=== PATIENT | female | born 1945 | race Caucasian/White ===

== ENCOUNTER → 2019-04-08 | Outpatient (CLI) | payer MEDICARE, BC | LOC: COL.VAS 14:09 | DX: I27.20 Pulmonary hypertension, unspecified (principal) ==

== ENCOUNTER → 2019-05-23 | Outpatient (CLI) | payer MEDICARE, BC | LOC: COL.RAD 09:45 | DX: N18.3 Chronic kidney disease, stage 3 (moderate) (principal); R31.9 Hematuria, unspecified ==

== ENCOUNTER 2020-08-11 19:17 | Emergency (ER) | payer MEDICARE, BC ==
[~2020-08-11] VITALS: Ht 162.6 cm; Wt 107.7 kg
[2020-08-11] MEDS ORDERED: CENTRUM SILVER1 CTB PO (19:47)
[2020-08-11] MEDS ORDERED: EPA FISH OIL1 SGL PO (19:48)
[2020-08-11] MEDS ORDERED: ZYLOPRIM 100MG100 MG PO (19:49)
[2020-08-11] MEDS ORDERED: ELIQUIS 5MG PO (19:49)
[2020-08-11] MEDS ORDERED: ASPIRIN 81M81 MG/TA2 PO (19:50)
[2020-08-11] MEDS ORDERED: GLUCOPHAGE850 MG/TAB PO (19:51)
[2020-08-11] MEDS ORDERED: MELATONIN1 MG PO (19:51)
[2020-08-11] MEDS ORDERED: VICTOZA6 MG/ML SQ (19:52)
[2020-08-11] MEDS ORDERED: MYRBETR50MG PO (19:53)
[2020-08-11] MEDS ORDERED: VITAMIN D31000 I1 PO (19:53)
[2020-08-11] MEDS ORDERED: LANTUS SOLOS100 U/ML SQ (19:54)
[2020-08-11] MEDS ORDERED: TYLENOL 325MG325 MG PO (20:02)
[2020-08-11] MEDS ORDERED: VOLTAREN GEL 1%1 TU TP (20:02)
[2020-08-11] MEDS ORDERED: ROBAXIN 50500 MG/TAB PO (20:02)
[2020-08-11 20:20] VITALS: BP 182/73; PULSE 73; TEMP 97.8
== END 2020-08-11 20:20 | disposition home or self-care (01) ==
LOC: COL.ER 19:17
DX: M54.2 Cervicalgia (principal); Z88.8 Allergy status to other drugs, medicaments and biological substances; Z79.01 Long term (current) use of anticoagulants; Z79.82 Long term (current) use of aspirin; Z79.4 Long term (current) use of insulin

== ENCOUNTER → 2020-08-23 | Outpatient (CLI) | payer MEDICARE, BC ==
[~2020-08-23] MED LIST: ASPIRIN 81M81 MG/TA2 PO; CENTRUM SILVER1 CTB PO; ELIQUIS 5MG PO; EPA FISH OIL1 SGL PO; GLUCOPHAGE850 MG/TAB PO; LANTUS SOLOS100 U/ML SQ; MELATONIN1 MG PO; MYRBETR50MG PO; ROBAXIN 50500 MG/TAB PO; TYLENOL 325MG325 MG PO; VICTOZA6 MG/ML SQ; VITAMIN D31000 I1 PO; VOLTAREN GEL 1%1 TU TP; ZYLOPRIM 100MG100 MG PO
== END ==
LOC: COL.RAD 08:30
DX: R31.0 Gross hematuria (principal); Z90.49 Acquired absence of other specified parts of digestive tract; Z90.710 Acquired absence of both cervix and uterus

== ENCOUNTER → 2020-11-24 | Outpatient (CLI) | payer MEDICARE, BC | LOC: COL.RAD 09:20 | DX: R31.0 Gross hematuria (principal) ==

== ENCOUNTER 2020-11-28 11:12 | Emergency (ER) | payer MEDICARE, BC ==
[~2020-11-28] VITALS: Ht 165.1 cm; Wt 106.4 kg
[2020-11-28 13:01] VITALS: BP 176/64; PULSE 69; TEMP 97.3
== END 2020-11-28 13:04 | disposition home or self-care (01) ==
LOC: COL.ER 11:12
DX: S50.12XA Contusion of left forearm, initial encounter (principal); I80.8 Phlebitis and thrombophlebitis of other sites; E11.9 Type 2 diabetes mellitus without complications; I48.91 Unspecified atrial fibrillation; Z79.01 Long term (current) use of anticoagulants; Z79.4 Long term (current) use of insulin; X58.XXXA Exposure to other specified factors, initial encounter

== ENCOUNTER → 2021-02-01 | Outpatient (CLI) | payer MEDICARE, BC | LOC: COL.VAS 13:14 | DX: I27.20 Pulmonary hypertension, unspecified (principal); I35.1 Nonrheumatic aortic (valve) insufficiency ==

== ENCOUNTER 2021-04-21 15:45 | Outpatient (RCR) | payer MEDICARE, BC | END 2021-04-22 | disposition home or self-care (01) | LOC: MKS.ESL.PT | DX: M25.561 Pain in right knee (principal) ==

== ENCOUNTER 2021-06-10 14:30 | Outpatient (RCR) | payer MEDICARE, BC ==
[2021-06-29] MEDS ORDERED: DOXYCYCLINE 10100 MG PO (16:40)
[2021-06-29] MEDS ORDERED: AMOXICILLIN875 MG PO (16:41)
== END 2021-06-20 | disposition home or self-care (01) ==
LOC: MKS.ESL.PT
DX: M25.561 Pain in right knee (principal); R53.1 Weakness

== ENCOUNTER → 2021-06-29 | Emergency (ER) | payer MEDICARE, BC ==
[~2021-06-29] VITALS: Ht 162.6 cm; Wt 145.5 kg
[~2021-06-29] MED LIST changes: +AMOXICILLIN875 MG PO; +DOXYCYCLINE 10100 MG PO
[2021-06-29 14:22] VITALS: PULSE 79; TEMP 97.6
[2021-06-29 14:38] VITALS: BP 195/69
[2021-06-29 15:28] LABS: BASO # 0.1 K/mm3 (0.0-0.2); BASO % 0.6 % (0.0-2.0); EOS # 0.2 K/mm3 (0.0-0.7); EOS % 2.6 % (0.0-4.0); GRAN # 5.8 K/mm3 (1.4-6.5); GRAN % 72.6 % (42.2-75.2); LYMPH # 1.3 K/mm3 (1.2-3.4); LYMPH % 16.5 % (20.0-51.0); MEAN CELL VOLUME 90 fl (80.0-100.0); MEAN CORPUSCULAR HGB CONC 31 g/dl (33.0-37.0); MEAN PLATELET VOLUME 11.2 fl (7.4-10.4); MONO # 0.6 K/mm3 (0.1-0.6); MONO % 7.5 % (1.7-9.3); PLATELET COUNT 173 K/mm3 (130-400); RED BLOOD COUNT 2.98 M/mm3 (4.10-5.30); REDCELL DISTRIBUTION WIDTH-CV 15.5 % (11.5-14.5)
[2021-06-29 15:33] LABS: HEMATOCRIT 26.7 % (37.0-47.0); HEMOGLOBIN 8.2 g/dl (12.5-16.0); MEAN CORPUSCULAR HEMOGLOBIN 28 pg (27-31)
[2021-06-29 15:40] LABS: C-REACTIVE PROTEIN 1.34 mg/dL (0.00-0.50); CREATININE, serum 1.1 mg/dL (0.57-1.11); POTASSIUM 4.9 mmol/L (3.5-4.5)
== END ==
LOC: COL.ER 13:43
PROVIDERS: Physician Assistant
DX: L03.116 Cellulitis of left lower limb (principal); L03.115 Cellulitis of right lower limb; E87.5 Hyperkalemia; I48.0 Paroxysmal atrial fibrillation; Z86.73 Personal history of transient ischemic attack (TIA), and cerebral infarction without residual deficits; Z88.1 Allergy status to other antibiotic agents; Z79.01 Long term (current) use of anticoagulants

== ENCOUNTER 2021-07-19 15:00 | Outpatient (RCR) | payer MEDICARE, BC | END 2021-07-21 | disposition home or self-care (01) | LOC: MKS.ESL.PT | DX: M25.561 Pain in right knee (principal); R53.1 Weakness ==

== ENCOUNTER → 2021-09-07 14:03 | Outpatient (RCR) | payer MEDICARE, BC ==
[~2021-09-07 14:03] MED LIST changes: +*Hypoglycemia Clinic MC; +CLEOCIN HC150 MG/CAP PO; +COLACE 100100 MG/CAP PO; +COZAAR100 MG PO; +Cordarone PO; +GEMTESA75 MG PO; +HCTZ 25MG TAB25 MG PO; +LASIX 20MG TABL20 MG PO; +MOTRIN 200200 MG/TAB PO; +NEURONTIN100 MG/CAP PO; +NORVASC 10MG10 MG PO; +NORVASC 5MG5 MG/TAB PO; +PROTONIX 40MG T40 MG PO; +PROZAC 10MG10 MG PO; +PROZAC 20MG20 MG PO; +Remove Patch TD
== END | disposition home or self-care (01) ==
LOC: MKS.ESL.PT 07-22 13:00
DX: M25.561 Pain in right knee (principal); G89.29 Other chronic pain

== ENCOUNTER 2021-10-21 14:07 | Emergency (ER) | payer MEDICARE, BC ==
[~2021-10-21] VITALS: Ht 165.1 cm; Wt 108.2 kg
[~2021-10-21 14:07] MED LIST changes: -*Hypoglycemia Clinic MC; -CLEOCIN HC150 MG/CAP PO; -COLACE 100100 MG/CAP PO; -COZAAR100 MG PO; -Cordarone PO; -GEMTESA75 MG PO; -HCTZ 25MG TAB25 MG PO; -LASIX 20MG TABL20 MG PO; -MOTRIN 200200 MG/TAB PO; -NEURONTIN100 MG/CAP PO; -NORVASC 10MG10 MG PO; -NORVASC 5MG5 MG/TAB PO; -PROTONIX 40MG T40 MG PO; -PROZAC 10MG10 MG PO; -PROZAC 20MG20 MG PO; -Remove Patch TD
[2021-10-21 14:40] VITALS: BP 153/70; TEMP 97.8
[2021-10-21 16:45] VITALS: PULSE 68
== END 2021-10-21 16:45 | disposition home or self-care (01) ==
LOC: COL.ER 14:07
DX: S83.92XA Sprain of unspecified site of left knee, initial encounter (principal); S70.01XA Contusion of right hip, initial encounter; W18.2XXA Fall in (into) shower or empty bathtub, initial encounter; Y93.E1 Activity, personal bathing and showering; Y92.002 Bathroom of unspecified non-institutional (private) residence as the place of occurrence of the external cause

== ENCOUNTER 2021-11-01 17:22 | Inpatient (IN) | payer MEDICARE, BC ==
[~2021-11-01] VITALS: Ht 165.1 cm; Wt 109.8 kg
[2021-11-01] VITALS (8 sets, daily range): BP systolic 145–171; BP diastolic 41–70; PULSE 65–71; TEMP 97.7–98
[2021-11-01 18:08] LABS: BASO # 0.1 K/mm3 (0.0-0.2); BASO % 0.8 % (0.0-2.0); EOS # 0.2 K/mm3 (0.0-0.7); EOS % 3.2 % (0.0-4.0); GRAN # 5.1 K/mm3 (1.4-6.5); GRAN % 67.6 % (42.2-75.2); LYMPH # 1.5 K/mm3 (1.2-3.4); LYMPH % 20.3 % (20.0-51.0); MEAN CELL VOLUME 92 fl (80.0-100.0); MEAN CORPUSCULAR HGB CONC 31 g/dl (33.0-37.0); MEAN PLATELET VOLUME 11.1 fl (7.4-10.4); MONO # 0.6 K/mm3 (0.1-0.6); MONO % 7.8 % (1.7-9.3); PLATELET COUNT 186 K/mm3 (130-400); RED BLOOD COUNT 2.39 M/mm3 (4.10-5.30); REDCELL DISTRIBUTION WIDTH-CV 16.2 % (11.5-14.5)
[2021-11-01 18:14] LABS: HEMOGLOBIN 6.7 g/dl (12.5-16.0); MEAN CORPUSCULAR HEMOGLOBIN 28 pg (27-31)
[2021-11-01 18:19] LABS: ALBUMIN 3.2 gm/dL (3.4-4.8); BILIRUBIN,TOTAL 0.3 mg/dL (0.2-1.2); C-REACTIVE PROTEIN 1.27 mg/dL (0.00-0.50); CALCIUM 9.1 mg/dL (8.4-10.2); CREATININE, serum 1.88 mg/dL (0.57-1.11); POTASSIUM 4.9 mmol/L (3.5-4.5); TOTAL PROTEIN 6.6 gm/dL (6.2-8.1)
[2021-11-01 18:31] LABS: INR 1.9 (0.8-3.0); PROTHROMBIN TIME 21.5 SECONDS (9.7-12.8)
--- NOTE | 2021-11-01 20:55 | NUR ---
PT IN THE ROOM AT THIS TIME. BLOOD TRANSFUSION IN PROCESS, RUNNING AT 150ML/HR INTO THE RIGHT ANTECUBITAL. THE PATIENT NEEDS TO URINATE, SO UTILIZED BEDSIDE COMMODE. PT IS A MAX 2 ASSIST. PT STATES SHE DOES NOT KNOW ALL OF HER MEDICATIONS, HOWEVER, SHE HAS NOT TAKEN ANY SINCE LAST NIGHT. THE PATIENT DID HAVE SOME STRESS INCONTINENCE FROM STANDING UP AT BEDSIDE TO THE BEDSIDE COMMODE. WILL CONTINUE TO ASSESS. VSS AT THIS TIME. NO FURTHER CONCERNS.
[2021-11-01 21:22] LABS: COLLECTION METHOD CLEAN CATCH
[2021-11-01] MEDS ORDERED: LASIX 20MG TABL20 MG PO (21:28)
[2021-11-01] MEDS ORDERED: NORVASC 10MG10 MG PO (21:28)
[2021-11-01 21:34] LABS: MUCOUS Present (NOT PRESENT); PH 5 (5-8); SQUAMOUS EPITHELIAL 0-2 /hpf (0-10); URINE APPEARANCE Clear (CLEAR/HAZY); URINE BACTERIA Rare /hpf (NONE SEEN); URINE BLOOD 3+ (NEGATIVE); URINE COLOR Yellow (YELLOW); URINE GLUCOSE Negative (NEGATIVE); URINE KETONE Negative (NEGATIVE); URINE NITRATE Negative (NEGATIVE); URINE PROTEIN(semi-quant) Negative (NEGATIVE); URINE RBC >50 /hpf (0-2); URINE UROBILINOGEN Negative (NEGATIVE)
[2021-11-01] MEDS ORDERED: COZAAR100 MG PO (21:35)
[2021-11-01] MEDS ORDERED: NEURONTIN100 MG/CAP PO (21:37)
[2021-11-01] MEDS ORDERED: PROZAC 20MG20 MG PO (21:38)
[2021-11-01] MEDS ORDERED: MOTRIN 200200 MG/TAB PO (21:45)
[2021-11-01] MEDS ORDERED: HCTZ 25MG TAB25 MG PO (21:51)
[2021-11-01] MEDS ORDERED: GEMTESA75 MG PO (22:00)
[2021-11-01 22:37] LABS: HEMATOCRIT 24.6 % (37.0-47.0); HEMOGLOBIN 7.9 g/dl (12.5-16.0)
[2021-11-02 07:30] VITALS: BP 146/45; PULSE 64; TEMP 98.2
[2021-11-02 11:11] LABS: CALCIUM 9.1 mg/dL (8.4-10.2); CREATININE, serum 1.46 mg/dL (0.57-1.11); MAGNESIUM 1.4 mg/dL (1.6-2.6); POTASSIUM 4.5 mmol/L (3.5-4.5)
[2021-11-02 11:25] LABS: BASO % 0.4 % (0.0-2.0); EOS # 0.3 K/mm3 (0.0-0.7); EOS % 3.5 % (0.0-4.0); GRAN # 4.4 K/mm3 (1.4-6.5); GRAN % 61.9 % (42.2-75.2); HEMATOCRIT 23.7 % (37.0-47.0); HEMOGLOBIN 7.6 g/dl (12.5-16.0); LYMPH # 1.8 K/mm3 (1.2-3.4); LYMPH % 25.6 % (20.0-51.0); MEAN CELL VOLUME 91 fl (80.0-100.0); MEAN CORPUSCULAR HEMOGLOBIN 29 pg (27-31); MEAN CORPUSCULAR HGB CONC 32 g/dl (33.0-37.0); MEAN PLATELET VOLUME 11.8 fl (7.4-10.4); MONO # 0.6 K/mm3 (0.1-0.6); MONO % 8.2 % (1.7-9.3); PLATELET COUNT 171 K/mm3 (130-400); RED BLOOD COUNT 2.62 M/mm3 (4.10-5.30); REDCELL DISTRIBUTION WIDTH-CV 16.1 % (11.5-14.5)
[2021-11-02 11:30] VITALS: BP 142/34; PULSE 71
[2021-11-02 12:00] VITALS: BP 142/34; PULSE 71
[2021-11-02 12:45] LABS: THYROID STIMULATING HORMONE 3.7 uIU/mL (0.350-4.940)
--- NOTE | 2021-11-02 13:04 | NUR ---
PATIENT UP IN CHAIR. PT ASSIST TO CHAIR WITH WALKER, MAX 2 ASSIST. PATIENT STRUGGLED AFTERWARDS FOR [id number] AND BACK TO BED FOR TRANSPORT TO MRI. PATIENT LLE NOT SUPPORTING WEIGHT COMPLETELY. PATIENT UNABLE TO CONTROL BLADDER. PATIENT HAS CONSISTENT HEMATURIA. ENDO PLANNED TODAY FOR EVAL. NO BOWEL MOVEMENT THIS MORNING. PATIENT NPO FOR PROCEDURE. C/O OF PAIN IN SPINE AND HIPS. MRI TAKEN THIS MORNING. WILL CONTINUE TO MONITOR.
[2021-11-02] MEDS ORDERED: NORVASC 5MG5 MG/TAB PO (15:45)
[2021-11-02] MEDS ORDERED: PROZAC 10MG10 MG PO (15:48)
[2021-11-02] MEDS ORDERED: GLUCOPHAGE850 MG/TAB PO (15:54)
[2021-11-02 16:00] VITALS: BP 148/52; PULSE 64
--- NOTE | 2021-11-02 18:09 | NUR ---
PATIENTS HEMATURIA HAS REDUCED OVER THE COURSE OF THE DAY. URINE IS STILL DARK YELLOW AND HAZY. PURWICK IN PLACE. PATIENT PER PT IS A 2MAX ASSIST. THIS NURSE RECOMMENDS A [id number] DEVICE FOR MOVING TO RECLINER AND WHEELCHAIRS, TOLIETS. PATIENT HAS HAD MRI TODAY AND UPPER SCOPE. NO PLAN FOR COLONOSCOPY, PER. DR. TO. FREQ COMPLAINTS OF BACK PAIN, DULL ACHE ALONG HER SPINE. NORCO ORDERED, HOWEVER WHEN THIS NURSE HAS GONE TO REASSESS PATIENT FOR NEED, PATIENT HAS BEEN SLEEPING SOUNDLY, THERFORE NO MEDS GIVEN. PATIENT IS TOLERATING PO DIET. ACCU CHECKS CHANGED TO ACHS, WITH DIET ORDERED. NO SIGNIFICANT EVENTS. NO OTHER CONCERNS.
[2021-11-02 20:13] VITALS: BP 152/44; PULSE 74; TEMP 99.2
[2021-11-03 00:35] VITALS: BP 151/43; PULSE 70; TEMP 97.9
[2021-11-03 04:45] VITALS: BP 146/47; PULSE 58; TEMP 97.9
[2021-11-03 07:07] VITALS: BP 140/56; PULSE 57; TEMP 97.7
--- NOTE | 2021-11-03 10:39 | NUR ---
SARAN met with the patient to discuss discharge plan. The patient lives in [place] with her son, Estrada (ph#[phone]). She reports independence with ADLs and has a cane, walker, and wheelchair. She states that she primarily uses the walker. The patient's PCP is Dr. Sandra Chen and she receives her medications from [facility]. The patient does not have a DPOA-HC and she was not interested in completing one at this time. The patient states that she is and that she has two children: Estrada and Vincent Davis. Vincent lives in [place]. PT/OT have worked with the patient and they are recommending post-acute rehab. The patient was also having multiple falls before being admitted. SARAN discussed post-acute rehab. The patient is interested in rehab and states that she does not want to go to a facility or swingbed in [place]. She would prefer a SNF in [place]. She is open to SARAN to sending referrals to SNFs in [place], but then stated she is unsure if she wants to pursue with SNF or not yet. SARAN attempted to contact the patient's son, Estrada, to update on the above. SARAN left him a voicemail. SARAN contacted and faxed a referral to [facility], [facility], and [facility]. Awaiting screens. *Discharge plan: SNF. Referrals out*
[2021-11-03 11:53] VITALS: BP 156/47; PULSE 65; TEMP 98
[2021-11-03 13:14] LABS: LYME DISEASE ANTIBODIES Negative (Negative)
[2021-11-03 14:01] LABS: CALCIUM 9.5 mg/dL (8.4-10.2); CREATININE, serum 1.45 mg/dL (0.57-1.11); POTASSIUM 4.6 mmol/L (3.5-4.5)
--- NOTE | 2021-11-03 14:46 | NUR ---
Fred, at [facility], reports that they are able to accept the patient. [facility] reports that they are able to accept the patient.
[2021-11-03 15:46] VITALS: BP 148/41; PULSE 62; TEMP 97.8
--- NOTE | 2021-11-03 16:21 | NUR ---
Kierra, at [facility], confirms they would need a copy of the patient's COVID vaccine card and if the patient is unable to complete admission paperwork on her own, they would require the patient's son to be present and DPOA-HC paperwork done. SW met with the patient to update and follow up on preference for facility. The patient states that she would like to try [facility]. She states that her COVID vaccine card is at home and that her and her son can do the paperwork together. SARAN informed her that [facility] would require a DPOA-HC to be completed and asked if she would like to complete a DPOA-HC today. The patient asked what if she does not go to [facility]. SARAN informed her that we could look at her going to [facility] then. The patient states that she needs to talk to her son first. SARAN attempted to contact the patient's son again. SARAN left him a voicemail.
[2021-11-03 19:40] VITALS: BP 146/43; PULSE 65; TEMP 98.3
[2021-11-04 00:51] VITALS: BP 150/58; PULSE 55; TEMP 97.9
[2021-11-04 04:22] VITALS: BP 143/55; PULSE 58; TEMP 98
[2021-11-04 06:57] LABS: BASO # 0.1 K/mm3 (0.0-0.2); BASO % 0.7 % (0.0-2.0); EOS # 0.2 K/mm3 (0.0-0.7); EOS % 2.9 % (0.0-4.0); GRAN # 5.6 K/mm3 (1.4-6.5); GRAN % 67.6 % (42.2-75.2); LYMPH # 1.6 K/mm3 (1.2-3.4); LYMPH % 19.8 % (20.0-51.0); MEAN CELL VOLUME 91 fl (80.0-100.0); MEAN CORPUSCULAR HGB CONC 31 g/dl (33.0-37.0); MONO # 0.7 K/mm3 (0.1-0.6); MONO % 8.6 % (1.7-9.3); PLATELET COUNT 191 K/mm3 (130-400); RED BLOOD COUNT 2.71 M/mm3 (4.10-5.30); REDCELL DISTRIBUTION WIDTH-CV 15.8 % (11.5-14.5)
--- NOTE | 2021-11-04 07:00 | NUR ---
The patient had an uneventful evening. IV in the left hand infiltrated. Started new IV in the left forearm. Pt denies any severe pain, chronic back pain gave tylenol for and has not needed anything else this night. Report was given to ROXANNA Freitas.
[2021-11-04 07:05] LABS: HEMATOCRIT 24.6 % (37.0-47.0); HEMOGLOBIN 7.7 g/dl (12.5-16.0); MEAN CORPUSCULAR HEMOGLOBIN 28 pg (27-31)
[2021-11-04 07:12] LABS: ALBUMIN 3.2 gm/dL (3.4-4.8); CALCIUM 9.4 mg/dL (8.4-10.2); CREATININE, serum 1.54 mg/dL (0.57-1.11); MAGNESIUM 1.3 mg/dL (1.6-2.6); PHOSPHOROUS 3.7 mg/dL (2.3-4.7); POTASSIUM 4.5 mmol/L (3.5-4.5)
[2021-11-04 08:07] VITALS: BP 124/77; BP 139/50; PULSE 62; PULSE 79; TEMP 98
--- NOTE | 2021-11-04 09:03 | NUR ---
Ximena, at [facility], contacted this SW and reports that they had the patient on for services.
--- NOTE | 2021-11-04 10:02 | NUR ---
Spoke with Dr Min and Dr Hopper and cisternogram will be done outpatient.
--- NOTE | 2021-11-04 10:13 | NUR ---
Kierra with [facility] arrives to unit stating that she is able to bring the patient over today if she is ready. SW collaborated with hospitalist who states that since cardiology is going to be starting her on a new medication she will be here through the weekend. Kierra updated that a possible dc for Sunday.
--- NOTE | 2021-11-04 10:39 | NUR ---
Dr Perez notified of need for PICC line. States okay to place in dominant arm.
[2021-11-04 12:11] VITALS: BP 150/47; PULSE 67; TEMP 98.1
[2021-11-04 15:46] VITALS: BP 139/42; PULSE 72; TEMP 98.2
--- NOTE | 2021-11-04 16:26 | NUR ---
George from [facility] called stating that they have also accepted this patient.
--- NOTE | 2021-11-04 18:18 | NUR ---
Patient had an uneventful day. Amio infusing @0.5mg/hr to right upper arm PICC without difficulty. Loop recorder was placed this afternoon. Denied pain/nausea/shortness of breath. Denies current needs. Call light in reach. Will monitor.
[2021-11-04 19:09] LABS: CADMIUM BLOOD <0.2 ng/mL (<5.0); LEAD,SERUM** <1.0 mcg/dL (<5.0); MERCURY,SERUM <1 ng/mL (<10)
[2021-11-04 19:38] VITALS: BP 152/53; PULSE 77; TEMP 97.6
[2021-11-05 00:22] VITALS: BP 159/45; PULSE 69; TEMP 98.3
[2021-11-05 05:06] VITALS: BP 144/42; PULSE 63; TEMP 97.8
[2021-11-05 07:29] LABS: BASO % 0.3 % (0.0-2.0); EOS # 0.2 K/mm3 (0.0-0.7); EOS % 3.6 % (0.0-4.0); GRAN # 4.5 K/mm3 (1.4-6.5); GRAN % 66.7 % (42.2-75.2); LYMPH # 1.4 K/mm3 (1.2-3.4); LYMPH % 20.7 % (20.0-51.0); MEAN CELL VOLUME 92 fl (80.0-100.0); MEAN CORPUSCULAR HGB CONC 30 g/dl (33.0-37.0); MEAN PLATELET VOLUME 10.9 fl (7.4-10.4); MONO # 0.6 K/mm3 (0.1-0.6); MONO % 8.4 % (1.7-9.3); PLATELET COUNT 175 K/mm3 (130-400); RED BLOOD COUNT 2.59 M/mm3 (4.10-5.30); REDCELL DISTRIBUTION WIDTH-CV 15.6 % (11.5-14.5)
[2021-11-05 07:35] LABS: HEMATOCRIT 23.7 % (37.0-47.0); HEMOGLOBIN 7.2 g/dl (12.5-16.0); MEAN CORPUSCULAR HEMOGLOBIN 28 pg (27-31)
[2021-11-05 07:51] LABS: ALBUMIN 2.9 gm/dL (3.4-4.8); CALCIUM 8.9 mg/dL (8.4-10.2); CREATININE, serum 1.35 mg/dL (0.57-1.11); MAGNESIUM 1.5 mg/dL (1.6-2.6); PHOSPHOROUS 3.7 mg/dL (2.3-4.7); POTASSIUM 4.5 mmol/L (3.5-4.5)
[2021-11-05 08:00] VITALS: BP 151/50; PULSE 58; TEMP 98.1
[2021-11-05 12:00] VITALS: BP 148/41; PULSE 58
--- NOTE | 2021-11-05 12:51 | NUR ---
PATIENT UP IN RECLYNER DURING ASSESSMENT. AMIO GTT BEING DISCONTINUED. ORAL DOSE ADMINISTURED. PATIENT INCONTINENT OF URINE. C/O LACK OF BOWEL MOVEMENT SINCE ADMIT. PATIENT REQUEST LIDOCAINE PATCH TO BE PLACED WHEN PUT BACK TO BED. LEFT FOOT WITH +2 PITTING EDEMA. PATIENT STATES THAT HIS HER BASELINE.
[2021-11-05 16:00] VITALS: BP 134/42; PULSE 62
--- NOTE | 2021-11-05 19:37 | NUR ---
PATIENT SAT IN RECLYNER FOR ENTIRITY OF SHIFT. NO COMPLAINTS OF PAIN, OTHER THAN IN BACK. REFUSED LIDOCAINE PATCH UNTIL SHE WENT BACK TO BED. AMIO GTT STOPPED AT 1230PM. BRIDGED TO PO AT 1130AM. NO SIGNIFCANT EVENTS TODAY. PATIENT STARTED ON BOWEL REGIMINE SHE HAS NOT HAD A RECORDED BOWEL MOVEMENT SINCE ADMISSION. BOWELS ACTIVE AND AUDIBLE. HGB AT 7.2 TODAY, WILL CONTINUE TO MONITOR. NO OTHER CONCERNS AT THIS TIME. NO SIGNIFICANT EVENTS TODAY.
[2021-11-05 21:06] VITALS: BP 149/53; PULSE 71; TEMP 98.4
[2021-11-06] VITALS (13 sets, daily range): BP systolic 113–169; BP diastolic 40–65; PULSE 55–74; TEMP 97.4–98.2
[2021-11-06 06:06] LABS: BASO % 0.4 % (0.0-2.0); EOS # 0.3 K/mm3 (0.0-0.7); EOS % 3.3 % (0.0-4.0); GRAN # 5.3 K/mm3 (1.4-6.5); LYMPH # 1.6 K/mm3 (1.2-3.4); LYMPH % 20.6 % (20.0-51.0); MEAN CELL VOLUME 92 fl (80.0-100.0); MEAN CORPUSCULAR HGB CONC 31 g/dl (33.0-37.0); MEAN PLATELET VOLUME 10.9 fl (7.4-10.4); MONO # 0.7 K/mm3 (0.1-0.6); MONO % 8.4 % (1.7-9.3); PLATELET COUNT 170 K/mm3 (130-400); RED BLOOD COUNT 2.41 M/mm3 (4.10-5.30); REDCELL DISTRIBUTION WIDTH-CV 15.4 % (11.5-14.5)
[2021-11-06 06:23] LABS: HEMATOCRIT 22.1 % (37.0-47.0); HEMOGLOBIN 6.8 g/dl (12.5-16.0); MEAN CORPUSCULAR HEMOGLOBIN 28 pg (27-31)
[2021-11-06 06:26] LABS: ALBUMIN 2.8 gm/dL (3.4-4.8); CALCIUM 8.7 mg/dL (8.4-10.2); CREATININE, serum 1.72 mg/dL (0.57-1.11); MAGNESIUM 1.4 mg/dL (1.6-2.6); PHOSPHOROUS 3.6 mg/dL (2.3-4.7); POTASSIUM 4.7 mmol/L (3.5-4.5)
--- NOTE | 2021-11-06 12:04 | NUR ---
PATIENT VERY TIRED TODAY. WILL BE REPLACING 1 UNIT OF PRBC. NO COMPLAINTS OF PAIN, PATIENT STATES ONCE OUT OF BED, NO REAL PAIN ISSUES. REQUESTS LIDOCAINE PATCH TO BE ADMINISTERED WHEN SHE GOES BACK TO BED, HOWEVER PATIENT STAYS IN CHAIR MAJORITY OF THE DAY, MAY RESCHEDULE MED FOR END OF DAY.
--- NOTE | 2021-11-06 19:28 | NUR ---
PATIENT TOLERATED BLOOD ADMINISTRATION WELL TODAY. NO COMPLAINTS OF PAIN ONCE IN CHAIR TODAY. BOWEL PREP STARTED AT 1700 THIS EVENING. NO OTHER CONCERNS AT THIS TIME.
[2021-11-07] VITALS (7 sets, daily range): BP systolic 132–174; BP diastolic 43–57; PULSE 59–79; TEMP 96.8–98.8
--- NOTE | 2021-11-07 06:00 | NUR ---
ASSESSMENT COMPLETE FOR ARC CUTTER. PT COMPLETE SHE BOWEL PREP. HOWEVER, PT VOMITED UP ABOUT 350ML OF IT AND PT'S HAD NO BM OF THIS MORNING. DR. TO CALLED AND INFORMED, ABOUT TWO HOURS AFTER PT FINISHED HER BOWEL PREP, THAT SHE HAD NO BOWEL MOVEMENT. DR. CORREIA SAID SHE WOULD LET DR. AVALOS (I BELIEVE THAT WAS THE NAME GIVEN) THIS MORNING. CALL LIGHT WITHIN REACH.
[2021-11-07 07:35] LABS: BASO % 0.5 % (0.0-2.0); EOS # 0.2 K/mm3 (0.0-0.7); EOS % 2.9 % (0.0-4.0); GRAN # 5.7 K/mm3 (1.4-6.5); GRAN % 71.8 % (42.2-75.2); LYMPH # 1.3 K/mm3 (1.2-3.4); MEAN CELL VOLUME 88 fl (80.0-100.0); MEAN CORPUSCULAR HGB CONC 33 g/dl (33.0-37.0); MEAN PLATELET VOLUME 10.9 fl (7.4-10.4); MONO # 0.6 K/mm3 (0.1-0.6); MONO % 7.5 % (1.7-9.3); PLATELET COUNT 182 K/mm3 (130-400)
[2021-11-07 07:38] LABS: HEMATOCRIT 25.6 % (37.0-47.0); HEMOGLOBIN 8.4 g/dl (12.5-16.0); MEAN CORPUSCULAR HEMOGLOBIN 29 pg (27-31)
[2021-11-07 07:51] LABS: CALCIUM 8.9 mg/dL (8.4-10.2); CREATININE, serum 1.47 mg/dL (0.57-1.11); MAGNESIUM 2.2 mg/dL (1.6-2.6); PHOSPHOROUS 3.6 mg/dL (2.3-4.7); POTASSIUM 4.4 mmol/L (3.5-4.5)
[2021-11-07 11:05] LABS: A/G RATIO (PEP) 0.96 (()); BETA GLOBULINS (PEP) 0.9 g/dL (0.7-1.2)
--- NOTE | 2021-11-07 12:22 | NUR ---
PT RESTING IN BED. MORNING MEDICATIONS GIVEN. SHIFT ASSESSMENT COMPLETED. PT STILL HAS NOT HAD BOWEL MOVEMENT AFTER COMPLETING PREP OVERNIGHT. CURRENTLY GETTING ANOTHER PREP AND SUPPOSITORY AT THIS TIME. PT DENIES ANY NEEDS AT THIS TIME. WILL CONTINUE TO MONITOR.
--- NOTE | 2021-11-07 16:01 | NUR ---
Beading Sawyer met with patient and confirmed patient's first preference is [facility]. Patient is having scope tomorrow so will not discharge today. SARAN updated Kierra at [facility].
[2021-11-08 03:25] VITALS: BP 152/48; PULSE 60; TEMP 97.3
--- NOTE | 2021-11-08 05:00 | NUR ---
ASSESSMENT COMPLETE FOR GAUGE OPERATOR. PT HAD SEVERAL BOWEL MOVEMENT BLOWOUTS AND COMPLETE BED CHANGES. RECTAL CATHETER PLACED. PT NPO AT MIDNIGHT. CALL LIGHT EFE BRAR.
[2021-11-08 06:52] LABS: BASO % 0.6 % (0.0-2.0); EOS # 0.3 K/mm3 (0.0-0.7); EOS % 3.6 % (0.0-4.0); GRAN # 4.3 K/mm3 (1.4-6.5); GRAN % 62.6 % (42.2-75.2); LYMPH # 1.6 K/mm3 (1.2-3.4); LYMPH % 23.8 % (20.0-51.0); MEAN CELL VOLUME 91 fl (80.0-100.0); MEAN CORPUSCULAR HGB CONC 31 g/dl (33.0-37.0); MEAN PLATELET VOLUME 10.9 fl (7.4-10.4); MONO # 0.6 K/mm3 (0.1-0.6); MONO % 9.3 % (1.7-9.3); PLATELET COUNT 196 K/mm3 (130-400); REDCELL DISTRIBUTION WIDTH-CV 15.1 % (11.5-14.5)
[2021-11-08 06:55] LABS: HEMATOCRIT 26.5 % (37.0-47.0); HEMOGLOBIN 8.2 g/dl (12.5-16.0); MEAN CORPUSCULAR HEMOGLOBIN 28 pg (27-31)
[2021-11-08 07:08] LABS: CALCIUM 9.1 mg/dL (8.4-10.2); CREATININE, serum 1.4 mg/dL (0.57-1.11); MAGNESIUM 1.9 mg/dL (1.6-2.6); PHOSPHOROUS 3.5 mg/dL (2.3-4.7); POTASSIUM 4.2 mmol/L (3.5-4.5)
[2021-11-08 07:42] VITALS: BP 159/52; PULSE 57; TEMP 98.1
--- NOTE | 2021-11-08 11:27 | NUR ---
PT SITTING UP IN RECLINER. MORNING MEDICATIONS HELD FOR PROCEDURE. SHIFT ASSESSMENT COMPLETED. RECTAL TUBE IN PLACE, WILL REMOVE BEFORE PROCEDURE. PT DENIES ANY NEEDS AT THIS TIME. WILL CONTINUE TO MONITOR.
[2021-11-08 11:30] VITALS: BP 170/55; PULSE 58
--- NOTE | 2021-11-08 12:40 | NUR ---
THIS RN REMOVED RECTAL TUBE FOR COLONOSCOPY PROCEDURE AT THIS TIME.
--- NOTE | 2021-11-08 15:26 | NUR ---
Hydroelectric Powerplant Supervisor faxed clinical updates to [facility] and will have colonoscopy this afternoon. Kierra at [facility] advised they can admit patient tomorrow. SW updated patient's son who is in agreement with plan.
[2021-11-08 15:38] VITALS: BP 169/48; PULSE 58
[2021-11-08 20:04] VITALS: BP 164/56; PULSE 62; TEMP 98.9
--- NOTE | 2021-11-08 21:37 | NUR ---
ALERT AND OX3. WANTED TO GO TO CHAIR TO SET UP. VERY DIFFICULT TRANSFER. DOES NOT BEAR ANY OWN WT AND CAN HARDLY MOVE LEGS. CHAIR ALARM ON. PM MEDS GIVEN. BS TX PER ORDER. MONITORING. SHOULD DC TO [facility] IN AM. CALL LIGHT WI REACH. PT USING PURE WICK BUT DOES NOT CALL IF WET. BED WAS WET UPON TRANSFER. FULL LINEN CHANGED.
[2021-11-08 23:53] VITALS: BP 174/48; PULSE 61; TEMP 98.1
[2021-11-09 03:24] VITALS: BP 154/48; PULSE 76; TEMP 97.8
--- NOTE | 2021-11-09 04:40 | NUR ---
RESTED THROUGH THE NIGHT WITHOUT INCIDENT. CALL LIGHT WITH IN REACH. NEEDS AREA MET.
[2021-11-09 07:20] LABS: BASO % 0.6 % (0.0-2.0); EOS # 0.2 K/mm3 (0.0-0.7); EOS % 3.4 % (0.0-4.0); GRAN # 4.7 K/mm3 (1.4-6.5); GRAN % 66.4 % (42.2-75.2); LYMPH # 1.5 K/mm3 (1.2-3.4); LYMPH % 20.6 % (20.0-51.0); MEAN CELL VOLUME 91 fl (80.0-100.0); MEAN CORPUSCULAR HGB CONC 31 g/dl (33.0-37.0); MEAN PLATELET VOLUME 11.1 fl (7.4-10.4); MONO # 0.6 K/mm3 (0.1-0.6); MONO % 8.7 % (1.7-9.3); PLATELET COUNT 194 K/mm3 (130-400); RED BLOOD COUNT 2.83 M/mm3 (4.10-5.30); REDCELL DISTRIBUTION WIDTH-CV 14.8 % (11.5-14.5)
[2021-11-09 07:24] LABS: HEMATOCRIT 25.6 % (37.0-47.0); MEAN CORPUSCULAR HEMOGLOBIN 28 pg (27-31)
[2021-11-09 07:36] LABS: CALCIUM 8.8 mg/dL (8.4-10.2); CREATININE, serum 1.38 mg/dL (0.57-1.11); POTASSIUM 4.3 mmol/L (3.5-4.5)
[2021-11-09 08:00] VITALS: BP 163/51; PULSE 56; TEMP 98
[2021-11-09] MEDS ORDERED: CLEOCIN HC150 MG/CAP PO (10:43)
[2021-11-09] MEDS ORDERED: NORVASC 10MG10 MG PO (10:45)
[2021-11-09] MEDS ORDERED: ASPIRIN 81M81 MG/TA2 PO (10:46)
[2021-11-09] MEDS ORDERED: PROTONIX 40MG T40 MG PO (10:48)
[2021-11-09] MEDS ORDERED: COLACE 100100 MG/CAP PO (10:48)
[2021-11-09] MEDS ORDERED: Cordarone PO (10:57)
[2021-11-09] MEDS ORDERED: Remove Patch TD (10:57)
[2021-11-09] MEDS ORDERED: *Hypoglycemia Clinic MC (10:57)
[2021-11-09 12:00] VITALS: BP 171/58; PULSE 57
[2021-11-09 13:11] VITALS: BP 171/58; PULSE 57; TEMP 98
--- NOTE | 2021-11-09 13:40 | NUR ---
Scheduled medications given. Shift assessment preformed. Patient A&O. Patient hypertensive. Schedule bp medication given. Lidocaine patch placed on lower back. Patient denies any further pain, discomfort, SOA, or further needs at this time. Patient deemed fit for discharge to [facility]. Report given to ROXANNA Florentino. Patient escorted from building by [facility] staff.
--- NOTE | 2021-11-09 13:57 | NUR ---
Lock Plater met with patient to review discharge plan. SARAN advised that [facility] can accept her today. Patient stated she thought she might be going home. SW reminded patient that she was going to SNF for rehab and had met with [facility] yesterday. SW reminded patient that Kierra from [facility] visited her yesterday while her son, Estrada was here. Patient stated she did not remember this, but was still agreeable to going to rehab at [facility]. SARAN presented IM form to patient who verbalized understanding and provided signature. SW placed form in chart and provided copy to patient. SARAN collaborated with RN about the above information. RN advised patient is normally alert and oriented. SARAN contacted Kierra at [facility] and arranged for transportation at 1300. SARAN faxed discharge orders. COVID results were negative and sent with patient's discharge packet. SARAN notified RN and patient of transport time. SARAN also notified patient's son, Estrada of discharge time and he is in agreement. Discharge Plan: [facility]
== END 2021-11-09 13:47 | DRG 261 ==
LOC: COL.ER 17:22 → MEDICAL 19:13
PROVIDERS: Internal Medicine Gastroenterology; Physician Assistant; Psychiatry & Neurology Neurology; Student in an Organized Health Care Education/Training Program; ADMIT Internal Medicine
PROC: 30233N1 Transfusion of Nonautologous Red Blood Cells into Peripheral Vein, Percutaneous Approach (ICD-10-PCS; 2021-11-01)
PROC: 0DB68ZX Excision of Stomach, Via Natural or Artificial Opening Endoscopic, Diagnostic (ICD-10-PCS; 2021-11-02)
PROC: 0JH632Z Insertion of Monitoring Device into Chest Subcutaneous Tissue and Fascia, Percutaneous Approach (ICD-10-PCS; principal; 2021-11-04)
PROC: 02HV33Z Insertion of Infusion Device into Superior Vena Cava, Percutaneous Approach (ICD-10-PCS; 2021-11-04)
PROC: 0DJD8ZZ Inspection of Lower Intestinal Tract, Via Natural or Artificial Opening Endoscopic (ICD-10-PCS; 2021-11-08)
DX: I48.0 Paroxysmal atrial fibrillation (principal); G91.2 (Idiopathic) normal pressure hydrocephalus; N17.9 Acute kidney failure, unspecified; K92.1 Melena; Z20.822 Contact with and (suspected) exposure to COVID-19; D64.9 Anemia, unspecified; M19.90 Unspecified osteoarthritis, unspecified site; F32.A Depression, unspecified; G47.33 Obstructive sleep apnea (adult) (pediatric); K57.30 Diverticulosis of large intestine without perforation or abscess without bleeding; K29.80 Duodenitis without bleeding; K26.9 Duodenal ulcer, unspecified as acute or chronic, without hemorrhage or perforation; K29.70 Gastritis, unspecified, without bleeding; F41.9 Anxiety disorder, unspecified; M10.9 Gout, unspecified; G89.29 Other chronic pain; M25.552 Pain in left hip; M25.551 Pain in right hip; I12.9 Hypertensive chronic kidney disease with stage 1 through stage 4 chronic kidney disease, or unspecified chronic kidney disease; N18.9 Chronic kidney disease, unspecified; E11.22 Type 2 diabetes mellitus with diabetic chronic kidney disease; M54.9 Dorsalgia, unspecified; E78.1 Pure hyperglyceridemia; I37.0 Nonrheumatic pulmonary valve stenosis; E11.42 Type 2 diabetes mellitus with diabetic polyneuropathy; I27.20 Pulmonary hypertension, unspecified; R53.1 Weakness; R26.9 Unspecified abnormalities of gait and mobility; M17.0 Bilateral primary osteoarthritis of knee; M16.0 Bilateral primary osteoarthritis of hip; G31.84 Mild cognitive impairment of uncertain or unknown etiology; M48.061 Spinal stenosis, lumbar region without neurogenic claudication; E83.42 Hypomagnesemia; K59.00 Constipation, unspecified; Z99.81 Dependence on supplemental oxygen; Z87.440 Personal history of urinary (tract) infections; Z79.01 Long term (current) use of anticoagulants; Z79.4 Long term (current) use of insulin; Z79.82 Long term (current) use of aspirin; Z90.710 Acquired absence of both cervix and uterus; Z90.49 Acquired absence of other specified parts of digestive tract; Z88.1 Allergy status to other antibiotic agents; Z88.8 Allergy status to other drugs, medicaments and biological substances; Z23 Encounter for immunization
CPT/HCPCS: 99233-AI; A9575; C1751; C1764; C1892; C9113; J0282; J1815; J2060; J2405; J2704; J3475; J7030; J7050; P9016

== ENCOUNTER 2021-12-11 04:06 | Observation (INO) | payer MEDICARE, BC ==
[~2021-12-11] VITALS: Ht 165.1 cm; Wt 104.0 kg
[~2021-12-11 04:06] MED LIST changes: +*Hypoglycemia Clinic MC; +CLEOCIN HC150 MG/CAP PO; +COLACE 100100 MG/CAP PO; +COZAAR100 MG PO; +Cordarone PO; +GEMTESA75 MG PO; +HCTZ 25MG TAB25 MG PO; +LASIX 20MG TABL20 MG PO; +MOTRIN 200200 MG/TAB PO; +NEURONTIN100 MG/CAP PO; +NORVASC 10MG10 MG PO; +NORVASC 5MG5 MG/TAB PO; +PROTONIX 40MG T40 MG PO; +PROZAC 10MG10 MG PO; +PROZAC 20MG20 MG PO; +Remove Patch TD
[2021-12-11 04:39] LABS: BASO # 0.1 K/mm3 (0.0-0.2); BASO % 0.8 % (0.0-2.0); EOS # 0.3 K/mm3 (0.0-0.7); EOS % 3.4 % (0.0-4.0); GRAN # 6.7 K/mm3 (1.4-6.5); GRAN % 67.8 % (42.2-75.2); LYMPH % 20.3 % (20.0-51.0); MEAN CELL VOLUME 90 fl (80.0-100.0); MEAN CORPUSCULAR HGB CONC 31 g/dl (33.0-37.0); MEAN PLATELET VOLUME 11.2 fl (7.4-10.4); MONO # 0.7 K/mm3 (0.1-0.6); MONO % 7.5 % (1.7-9.3); PLATELET COUNT 215 K/mm3 (130-400); RED BLOOD COUNT 3.17 M/mm3 (4.10-5.30); REDCELL DISTRIBUTION WIDTH-CV 15.4 % (11.5-14.5)
[2021-12-11 04:43] LABS: HEMATOCRIT 28.5 % (37.0-47.0); HEMOGLOBIN 8.9 g/dl (12.5-16.0); MEAN CORPUSCULAR HEMOGLOBIN 28 pg (27-31)
[2021-12-11 04:55] LABS: ALBUMIN 3.6 gm/dL (3.4-4.8); BILIRUBIN,TOTAL 0.3 mg/dL (0.2-1.2); CALCIUM 9.4 mg/dL (8.4-10.2); CREATININE, serum 2.36 mg/dL (0.57-1.11); POTASSIUM 4.4 mmol/L (3.5-4.5); TOTAL PROTEIN 7.6 gm/dL (6.2-8.1)
[2021-12-11 05:29] LABS: INR 1.7 (0.8-3.0); PROTHROMBIN TIME 19.4 SECONDS (9.7-12.8)
[2021-12-11 05:31] LABS: PARTIAL THROMBOPLASTIN TIME 43.2 SECONDS (26.0-37.0)
[2021-12-11] MEDS ORDERED: ELIQUIS 5MG PO (06:01)
[2021-12-11] MEDS ORDERED: B-121000 MCG PO (06:02)
[2021-12-11] MEDS ORDERED: FLEXERIL 1010 MG/TAB PO (06:03)
[2021-12-11] MEDS ORDERED: COLACE 100100 MG/CAP PO (06:03)
[2021-12-11] MEDS ORDERED: FERROUS SU325 MG/TAB PO (06:04)
[2021-12-11] MEDS ORDERED: NEURONTIN100 MG/CAP PO (06:05)
[2021-12-11] MEDS ORDERED: GLUCOSAMINE & C1 CA2 PO (06:06)
[2021-12-11] MEDS ORDERED: OMEGA-3 1000 MG1 CAP PO (06:09)
--- NOTE | 2021-12-11 06:09 | NUR ---
PT ADMITTED FROM ER TO ROOM 344. PT A&OX4. NAUSEATED AFTER REPOSITIONING. IV TO LT F/A. CALL IGHT IN REACH BED ALARM SET.
[2021-12-11] MEDS ORDERED: NATURAL E400 IU PO (06:10)
[2021-12-11] MEDS ORDERED: ZOFRAN 4MG T4 MG/TAB PO (06:10)
[2021-12-11] MEDS ORDERED: GLUCOPHAGE850 MG/TAB PO (06:16)
--- NOTE | 2021-12-11 06:24 | NUR ---
DR TO NOTIFIED OF CONSULT.
[2021-12-11 06:28] VITALS: BP 134/45; PULSE 62; TEMP 98.4
--- NOTE | 2021-12-11 06:32 | NUR ---
pt resting now. no distress.
--- NOTE | 2021-12-11 06:45 | NUR ---
SHIFT REPORT GIVEN TO KATTY Hope RN
[2021-12-11 08:03] VITALS: BP 152/52; PULSE 63; TEMP 98.4
--- NOTE | 2021-12-11 08:53 | NUR ---
PATIENT OFF OF FLOOR FOR PROCEDURE
--- NOTE | 2021-12-11 10:32 | NUR ---
PATIENT ALERT AND ORIENTED X4. VSS. IV TO LEFT WRIST WITH NS RUNNING AT 60ML/HOUR. CONSENT OBTAINED FOR PROCEDURE. PATIENT DENIES ANY PAIN AT THIS TIME. PATIENT DENIES ANY EMESIS OR ABDOMINAL PAIN. ASSESSMENT PERFORMED. IV PROTONIX STARTED. PATIENT RESTING IN BED WITH CALL LIGHT NEAR.
--- NOTE | 2021-12-11 10:40 | NUR ---
SW attempted to complete intake with patient, but was informed that she just returned from procedure and potentially would need time before completing intake. Patient currently resides at [facility]. SW will attempt at a later time.
[2021-12-11 11:56] LABS: HEMATOCRIT 25.7 % (37.0-47.0)
[2021-12-11 12:00] VITALS: BP 145/47; PULSE 60
[2021-12-11 15:52] VITALS: BP 145/49; PULSE 65; TEMP 97.7
--- NOTE | 2021-12-11 15:56 | NUR ---
Care resumed from Ann Hawkins. Patient blood sugar was 67, she gave dextrose per protocol. Upon recheck was 120. Patient now resting will monitor.
--- NOTE | 2021-12-11 17:51 | NUR ---
Patient blood sugar stable at 112. I did contact and IVF orders obtained. Patient 2 assist up to bedside commode with walker & gaitbelt. She voided, but was incontinent of urine, pericares provided with dry brief. Patient assisted back to bed. She is watching TV.
--- NOTE | 2021-12-11 18:30 | NUR ---
Patient repositioned in bed for comfort. Will report off to nightnurse
--- NOTE | 2021-12-11 20:00 | NUR ---
PT A&OX4 RESTING IN BED. PT HELPED TO BEDSIDE COMMODE X2 ASSIST. ASSESSMENT COMPLETE AND MEDS GIVEN. PT RATES BACK PAIN AN 11/30. TELE IN PLACE. BS 112 REQUIRING NO INSULIN PER SS. D5NS AT 75ML/HR IN LT HAND. SCDS APPLIED TO BLE. NO OTHER NEEDS AT THIS TIME. CALL LIGHT WITHIN REACH.
[2021-12-11 20:12] VITALS: BP 165/48; PULSE 63; TEMP 97.6
[2021-12-11 23:20] VITALS: BP 146/37; PULSE 62; TEMP 98.7
[2021-12-12 03:43] VITALS: BP 144/42; PULSE 58; TEMP 97.5
[2021-12-12 07:25] LABS: BASO # 0.1 K/mm3 (0.0-0.2); BASO % 0.7 % (0.0-2.0); EOS # 0.3 K/mm3 (0.0-0.7); GRAN # 4.8 K/mm3 (1.4-6.5); GRAN % 66.8 % (42.2-75.2); LYMPH # 1.5 K/mm3 (1.2-3.4); LYMPH % 20.8 % (20.0-51.0); MEAN CELL VOLUME 92 fl (80.0-100.0); MEAN CORPUSCULAR HGB CONC 31 g/dl (33.0-37.0); MEAN PLATELET VOLUME 11.5 fl (7.4-10.4); MONO # 0.6 K/mm3 (0.1-0.6); MONO % 7.6 % (1.7-9.3); PLATELET COUNT 205 K/mm3 (130-400); RED BLOOD COUNT 2.83 M/mm3 (4.10-5.30); REDCELL DISTRIBUTION WIDTH-CV 15.5 % (11.5-14.5)
[2021-12-12 07:26] LABS: HEMATOCRIT 26.1 % (37.0-47.0); MEAN CORPUSCULAR HEMOGLOBIN 28 pg (27-31)
[2021-12-12 07:46] LABS: ALBUMIN 3.1 gm/dL (3.4-4.8); CALCIUM 8.9 mg/dL (8.4-10.2); CREATININE, serum 1.78 mg/dL (0.57-1.11); MAGNESIUM 1.2 mg/dL (1.6-2.6); PHOSPHOROUS 2.9 mg/dL (2.3-4.7); POTASSIUM 4.3 mmol/L (3.5-4.5)
[2021-12-12 07:58] VITALS: BP 131/36; PULSE 57; TEMP 97.6
--- NOTE | 2021-12-12 08:48 | NUR ---
PT RESTING IN BED. UP TO COMMODE WITH ASSIST X2. PT VOIDED AND RETURNED BACK TO BED. POSSIBLE DISCHARGE TO [place] TODAY.
[2021-12-12 11:43] VITALS: BP 140/36; PULSE 57; TEMP 98.2
--- NOTE | 2021-12-12 12:17 | NUR ---
Celina: No latter day preference Situation: Patient Account Representative stopped by room on rounds Background: Pt was resting and content Assessment: Pt has no needs right now Recommendation: commodity supervisor will follow up as needed
--- NOTE | 2021-12-12 13:41 | NUR ---
needleworker met with patient to complete intake and discuss discharge plan. Patient reports that she is currently at [facility]. Prior to entering [facility], patient was living in [place] with her son Estrada ([phone]). Patient reports that she is mainly independent with her ADL's only needing help with "my shoes and socks" from the correction staff. Patient utilizes a walker to assist with ambulation. She uses 2-2.5L of [place] oxygen at night that is managed through [facility] in [place]. PCP is Dr. Chen and she uses [facility] in [place] for prescriptions. Patient reports that she does not have a DPOA-HC established and is not interested in creating one at this time. Patient reports that she is and has two children. Educations provided and patient is in agreement with her sons being her decision maker. Patient will return back to [facility] once medically ready. SW confirming if the patient is SNF or LTC at [facility]. Discharge plan: [facility] SNF vs.LTC
--- NOTE | 2021-12-12 14:29 | NUR ---
Confirmed with [facility] that this patient is there under skilled services.
[2021-12-12 16:00] VITALS: BP 172/54; PULSE 58; TEMP 98.1
[2021-12-12 19:24] VITALS: BP 155/68; PULSE 56; TEMP 97.3
--- NOTE | 2021-12-12 20:00 | NUR ---
PT ASSISTED TO BSC WITH ONE STAFF AND BACK TO BED. TRANSFERS BETTER THAN PREVIOUS DAY. CAPPED IVF TO LEFT HAND, FLUIDS DC'D. IS ALERT AND ORIENTED X4. HAS BILATERAL LOWER LEG SWELLING WITH LEFT FOOT WITH PITTING EDEMA. DELIVERY RN REPORTS SB ON MONITOR. BED ALARM SET.
[2021-12-12 23:58] VITALS: BP 168/45; PULSE 57; TEMP 98.7
--- NOTE | 2021-12-13 02:45 | NUR ---
ASSISTED TO BSC WITH ONE ASSIST, DOES WELL, BACK TO BED. ASKING FOR OXYGEN SHE WEARS IT AT HOME AT NIGHT. PLACED ON 1L/NC.
[2021-12-13 02:57] VITALS: BP 156/51; PULSE 55; TEMP 98.2
--- NOTE | 2021-12-13 04:03 | NUR ---
PT ASKING FOR TYLENOL, GIVEN 650MG PO AT THIS TIME.
[2021-12-13 06:01] LABS: BASO # 0.1 K/mm3 (0.0-0.2); BASO % 0.7 % (0.0-2.0); EOS # 0.4 K/mm3 (0.0-0.7); EOS % 5.1 % (0.0-4.0); GRAN # 4.8 K/mm3 (1.4-6.5); GRAN % 65.1 % (42.2-75.2); LYMPH # 1.4 K/mm3 (1.2-3.4); LYMPH % 19.5 % (20.0-51.0); MEAN CELL VOLUME 89 fl (80.0-100.0); MEAN CORPUSCULAR HGB CONC 31 g/dl (33.0-37.0); MEAN PLATELET VOLUME 11.8 fl (7.4-10.4); MONO # 0.7 K/mm3 (0.1-0.6); MONO % 9.3 % (1.7-9.3); PLATELET COUNT 195 K/mm3 (130-400); RED BLOOD COUNT 2.76 M/mm3 (4.10-5.30); REDCELL DISTRIBUTION WIDTH-CV 15.6 % (11.5-14.5)
[2021-12-13 06:23] LABS: HEMATOCRIT 24.5 % (37.0-47.0); HEMOGLOBIN 7.7 g/dl (12.5-16.0); MEAN CORPUSCULAR HEMOGLOBIN 28 pg (27-31)
[2021-12-13 06:27] LABS: CALCIUM 8.7 mg/dL (8.4-10.2); CREATININE, serum 1.58 mg/dL (0.57-1.11); MAGNESIUM 2.7 mg/dL (1.6-2.6); PHOSPHOROUS 2.9 mg/dL (2.3-4.7); POTASSIUM 4.3 mmol/L (3.5-4.5)
--- NOTE | 2021-12-13 06:40 | NUR ---
appears to be sleeping, bedside shift report received from ROXANNA Gambino
[2021-12-13 07:20] VITALS: BP 156/46; PULSE 54; TEMP 98
--- NOTE | 2021-12-13 08:10 | NUR ---
continues to sleep, awakened and full assessment completed, see interventions for further info, sitting up to have clear liquid breakfast
--- NOTE | 2021-12-13 08:55 | NUR ---
had breakfast and tolerated well, is awake and watcing TV now
[2021-12-13 09:15] VITALS: TEMP 99.1
--- NOTE | 2021-12-13 09:33 | NUR ---
physical therapy in and working with patient, ambulating out in [place]
--- NOTE | 2021-12-13 09:52 | NUR ---
Initial visit Patient thanked Equipment Lead for looking in on her and visiting about their mutual home town. Patient was receptive to Equipment Lead keeping her in her prayers.
--- NOTE | 2021-12-13 10:00 | NUR ---
occupational therapy in and assisting her with taking a shower
--- NOTE | 2021-12-13 11:30 | NUR ---
assisted her with ordering a regular lunch and will see how she tolerates
[2021-12-13 12:00] VITALS: BP 148/48; PULSE 55; TEMP 97.8
--- NOTE | 2021-12-13 12:50 | NUR ---
sitting up in bed eatin [place] and is tolerating well
--- NOTE | 2021-12-13 12:51 | NUR ---
Contact made with Nigel at [facility] to notify her that they physician is thinking the patient can discharge today. Clinical updates faxed to Nigel for review.
[2021-12-13] MEDS ORDERED: CORDARONE200 MG/TAB PO (13:13)
[2021-12-13] MEDS ORDERED: MIRALAX PA17 GM/Dose PO (13:25)
[2021-12-13] MEDS ORDERED: ASPIRIN 81M81 MG/TA2 PO (13:26)
[2021-12-13 13:39] VITALS: BP 148/48; PULSE 55; TEMP 97.8
[2021-12-13 15:24] VITALS: BP 142/35; PULSE 60; TEMP 98.5
--- NOTE | 2021-12-13 15:45 | NUR ---
transferred to and to [facility]
--- NOTE | 2021-12-13 16:15 | NUR ---
After many failed attempts to get ahold of Nigel, SARAN spoke with Donita at [facility] who states that they can has transportation here at 1600 to pick the patient up. Discharge orders and covid swab faxed to to [facility].
--- NOTE | 2021-12-13 16:23 | NUR ---
[facility]
== END 2021-12-13 15:45 ==
LOC: COL.ER 04:06 → SURG 05:06 → MEDICAL 05:06 → SURG 12-12 13:39
PROVIDERS: Personal Emergency Response Attendant; Student in an Organized Health Care Education/Training Program; ADMIT Internal Medicine
DX: K92.0 Hematemesis (principal); K22.6 Gastro-esophageal laceration-hemorrhage syndrome; K31.84 Gastroparesis; K29.61 Other gastritis with bleeding; E11.649 Type 2 diabetes mellitus with hypoglycemia without coma; I12.9 Hypertensive chronic kidney disease with stage 1 through stage 4 chronic kidney disease, or unspecified chronic kidney disease; E11.22 Type 2 diabetes mellitus with diabetic chronic kidney disease; N17.9 Acute kidney failure, unspecified; Z20.822 Contact with and (suspected) exposure to COVID-19; N18.9 Chronic kidney disease, unspecified; Z79.4 Long term (current) use of insulin; I48.0 Paroxysmal atrial fibrillation; M48.061 Spinal stenosis, lumbar region without neurogenic claudication; M54.50 Low back pain, unspecified; D64.9 Anemia, unspecified; R53.1 Weakness; R53.81 Other malaise; R09.02 Hypoxemia; G47.33 Obstructive sleep apnea (adult) (pediatric); F32.A Depression, unspecified; E66.9 Obesity, unspecified; Z95.818 Presence of other cardiac implants and grafts; Z79.84 Long term (current) use of oral hypoglycemic drugs; Z87.891 Personal history of nicotine dependence; Z68.38 Body mass index [BMI] 38.0-38.9, adult; Z79.82 Long term (current) use of aspirin; Z79.01 Long term (current) use of anticoagulants
CPT/HCPCS: C9113; G0378; J1815; J2270; J2405; J2704; J3475; J7030; J7042

== ENCOUNTER → 2021-12-19 | Outpatient (CLI) | payer MEDICARE, BC ==
[~2021-12-19] MED LIST changes: +B-121000 MCG PO; +CORDARONE200 MG/TAB PO; +FERROUS SU325 MG/TAB PO; +FLEXERIL 1010 MG/TAB PO; +GLUCOSAMINE & C1 CA2 PO; +MIRALAX PA17 GM/Dose PO; +NATURAL E400 IU PO; +OMEGA-3 1000 MG1 CAP PO; +ZOFRAN 4MG T4 MG/TAB PO
[2021-12-19 13:49] LABS: HEMATOCRIT 29.1 % (37.0-47.0); HEMOGLOBIN 8.8 g/dl (12.5-16.0)
== END ==
LOC: ZCOL.LAB 13:33
PROVIDERS: Emergency Medicine
DX: D50.9 Iron deficiency anemia, unspecified (principal)

== ENCOUNTER → 2021-12-26 | Outpatient (CLI) | payer MEDICARE, BC ==
[2021-12-26 16:51] LABS: HEMATOCRIT 27.1 % (37.0-47.0); HEMOGLOBIN 8.3 g/dl (12.5-16.0)
== END ==
LOC: ZCOL.LAB 14:21
PROVIDERS: Emergency Medicine
DX: D50.9 Iron deficiency anemia, unspecified (principal)

== ENCOUNTER → 2022-01-02 | Outpatient (CLI) | payer MEDICARE, BC ==
[2022-01-02 15:29] LABS: HEMATOCRIT 27.3 % (37.0-47.0); HEMOGLOBIN 8.3 g/dl (12.5-16.0)
== END ==
LOC: ZCOL.LAB 14:15
PROVIDERS: Emergency Medicine
DX: I48.0 Paroxysmal atrial fibrillation (principal)

== ENCOUNTER → 2022-01-09 | Outpatient (CLI) | payer MEDICARE, BC ==
[2022-01-09 15:25] LABS: HEMATOCRIT 26.2 % (37.0-47.0)
== END ==
LOC: ZCOL.LAB 11:48
PROVIDERS: Emergency Medicine
DX: D50.9 Iron deficiency anemia, unspecified (principal)

== ENCOUNTER → 2022-08-27 | Outpatient (CLI) | payer MEDICARE, BC ==
[~2022-08-27] MED LIST changes: +MELATONIN5 M1 SL; -OMEGA-3 1000 MG1 CAP PO; +OMEGA-3 FISH1000 MG PO; +SLOW FE142 MG PO
[2022-08-27 16:39] LABS: COLLECTION METHOD CLEAN CATCH
[2022-08-27 17:04] LABS: MUCOUS Present (NOT PRESENT); SQUAMOUS EPITHELIAL 0-2 /hpf (0-10); URINE BACTERIA Rare /hpf (NONE SEEN)
[2022-08-27 17:06] LABS: PH 5.5 (5-8); URINE APPEARANCE Cloudy (CLEAR/HAZY); URINE BLOOD TRACE-INTACT (NEGATIVE); URINE COLOR Yellow (YELLOW); URINE GLUCOSE Negative (NEGATIVE); URINE KETONE Negative (NEGATIVE); URINE NITRATE Negative (NEGATIVE); URINE PROTEIN(semi-quant) Negative (NEGATIVE); URINE UROBILINOGEN 0.2 (NEGATIVE)
== END ==
LOC: COL.LAB 14:30
PROVIDERS: Family Medicine
DX: N39.0 Urinary tract infection, site not specified (principal)